=== PATIENT | female | born 1980 | race Caucasian/White ===

== ENCOUNTER 2017-04-04 14:39 | Inpatient (IN) ==
--- OUTSIDE RECORDS SUMMARY | 2017-04-04 14:45 | External Medical Summary ---
:1980 Author Organization [employer] Care Team Providers Name Role Phone Sirena Nguyễn Provider Role Unavailable Allergies, Adverse Reactions, Alerts Substance Reaction Event Type N.K.D.A. Info Not Available Non Drug Allergy Problems Problem Type Condition Code Onset Dates Condition Status Problem Thoracic or lumbosacral neuritis or 724.4 Active radiculitis, unspecified Assessment H/O motion sickness Z87.898 Active Problem Morbid obesity, unspecified obesity E66.01 Active type Assessment Morbid obesity, unspecified obesity E66.01 Active type Medications Medication Code Code Instructions Start End Date Status Dosage System Date Transderm-Scop NDC 58828-31 1.5 MG Jan 29, Feb 06, as directed 45-04 Transdermal 2015 2015 change every 3rd day Procedures Procedure Coding System Code Date OFFICE VISIT, EST-LOW COMPLEXITY (15 MIN.) CPT-4 52485 Jan 30, 2016 Vital Signs Date/Time: Jan 30, 2016 Temperature 98.3 F Height 63.5 in Weight 299.8 lbs Blood Pressure Diastolic 60 mm Hg Blood Pressure Systolic 122 mm Hg Cardiac Monitoring Heart Rate 77 /min BMI 52.27 Index Oximetry 94 % Results No Known Results Summary Purpose [employer] Submission
--- OUTSIDE RECORDS SUMMARY | 2017-04-04 14:45 | External Medical Summary ---
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
--- OUTSIDE RECORDS SUMMARY | 2017-04-04 14:45 | External Medical Summary ---
:1980 Author Organization [employer] Care Team Providers Name Role Phone Bobby Lopez Provider Role Unavailable Allergies, Adverse Reactions, Alerts Substance Reaction Event Type N.K.D.A. Info Not Available Non Drug Allergy Problems Problem Type Condition Code Onset Dates Condition Status Assessment Low back pain M54.5 Active Assessment Spinal stenosis, lumbar region M48.06 Active Problem Thoracic or lumbosacral neuritis or 724.4 Active radiculitis, unspecified Assessment Other intervertebral disc M51.26 Active displacement, lumbar region Medications Medication Code System Code Instructions Start End Date Status Dosage Date Flexeril [facility] 30927-14 10 MG Orally Feb 15, Mar 15, 1 tablet 91-15 every 8 hours as 2014 2015 needed for back pain PredniSONE [facility] 94232-74 10 MG Orally as Feb 15, Feb 27, 4 tabs 17-20 directed 2014 2014 daily x3 days then 3 tabs daily x3 days then 2 tabs daily x3 days then 1 tab daily x3 days then stop Phentermine HCl [facility] 56742-15 37.5 MG Orally 1 tablet 17-01 Once a day Procedures Procedure Coding System Code Date OFFICE VISIT, EST-MOD. COMPLEXITY (25 MIN) CPT-4 67507 Feb 15, 2015 TEST, IN HOUSE CPT-4 41125 Feb 15, 2015 Vital Signs Date/Time: Feb 15, 2015 Height 63.5 in Weight 282.8 lbs Temperature 97.9 F Blood Pressure Diastolic 86 mm Hg Blood Pressure Systolic 126 mm Hg Cardiac Monitoring Heart Rate 89 /min BMI 49.30 Index Oximetry 98 % Respiratory Rate 16 /min Results Name Result Date Reference Range Unit Abnormality Flag In House Test, Urine ---- Test, Urine negative [id number] Summary Purpose eClinicalWorks Submission
[2017-04-04 15:01] VITALS: BMI 57.0
[2017-04-04] MEDS ORDERED: LEVOFLOXACIN 750 MG TABLET PO SCH (15:12)
[2017-04-04] MEDS ORDERED: NS 1,000 ML IV ONE ×2 (15:17→23:05)
[2017-04-04] MEDS: ACETAMINOPHEN 325 MG TABLET PO PRN ×2 (15:34→20:50)
[2017-04-04] MEDS: METHYLPREDNISOLONE SOD SUCC 125mg/2ml INJECTION IVP SCH (16:18)
--- NOTE | 2017-04-04 16:18 | XRay Report ---
EXAM: XR chest 2V COMPARISON: 12/31/2016. HISTORY: hypoxemia . FINDINGS: The cardiomediastinal silhouette is within limits of normal. The pulmonary vascularity appears unremarkable. The lungs are clear. There is no evidence for pleural effusion. There is no evidence for a pneumothorax. No osseous abnormalities are identified. IMPRESSION: Unremarkable exam. LOCATION [place] DICTATION: [facility] [place]
--- NOTE | 2017-04-04 16:50 | History & Physical Report ---
History of Present Illness Date: 04/04/17 Chief complaint: acute hypoxic respiratory failure, respiratory distress HPI: patient is a pleasant 36yo female known to [facility]. she thinks she was told somewhere that she has asthma remotely but this isn't clear. she usually follows with Dodie Pike as her primary provider. she was in her usual state of health until about 5 or 6 days ago. at that time she noted runny nose with clear rhinorrhea which developed into fevers, chills and generalized body aches, fatigue and malaise. she also has felt generally weak. cough has been vigerous to the point where she's had spasm and pain to palpation over bilateral upper backs just inferior to scapula bilaterally. every time she coughs it hurts. it is directly tender to touch there. she was seen in clinic today where her O2 sats dropped into the mid-80's with any kind of exertion. her respirations were in the 30's to 40's at that time. she was moderately tachycardiac with HR's in 120's. she was complaining of a great deal respiratory distress and she was using some accessory muscles. EKG in clinic demonstrated sinus tachycardiac but was otherwise unremarkable. X1 nebulizer of albuterol was attempted but this was cut short as it made her nauseous. she notes nausea on and off with occasional normal appearing vomitus. this only occurs with long bouts of coughing and the gagging that occurs from this. given patient's hypoxemia and respiratory distress in clinic it was opted to admit to [facility] for further evaluation and treatment. patient positive for the fevers, chills, body aches, fatigue and generalized weakness noted in the above. no recent travel, camping, cherry exposures, rashes , skin changes. no ear pain, sinus pain, sore throat. runny nose persists. no headaches, nuchal rigidity, photophobia, meningeal symptoms. no dizziness, syncope, near syncope. appetite has been poor lately. no unintentional weight loss, night sweats or other constitutional symptoms. no ear drainage, hearing changes, tinnitus, vertigo. no vision changes, face swelling, changes in cognition, depression, altered mentation, obtundation, homicidal/suicidal ideations. not trying to get and not . no falls, trauma , injuries. no pain over bony spine itself. pain in back noted above worse when extending shoulders backward and flexing them forward as well. no chest pain. she has noted significant SOA at rest and exertional as well as wheezing with this. she doesn't feel like she's moving air nearly as well as she usually does. no hemoptysis. no orthopnea, PND, new edema, leg asymmetry. no recent long periods of immobilization. no personal or family history of venous thromboembolism. doesn't smoke. didn't get flu shot this season. 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 no known exposure to influenza. no abdominal pain, GERD symptoms. no low back pain. no numbness/weakness/tingling anywhere. no pain in any extremities. no radicular symptoms down legs or in arms. no hematemesis. no coffee ground emesis, melena, BRBPR, constipation, diarrhea, bloody/black stools. no dysphagia or GI warning symptoms. no dysuria, hematuria, urinary frequency, flank pain, nocturia, urinary/bowel incontinance, urinary retention, polyuria, oliguria, other urinary symptoms/chagnes, encephalopathic symptoms. denies any tylenol use. used occasional ibuprofen but only sparingly and never more than allowed on the bottle. see above and below for other ROS. no new issues otherwise at this time. Review of Systems - Constitutional Constitutional: Present: as per HPI - EENMT Eyes: Present: as per HPI Ears: Present: as per HPI Balance: Present: as per HPI. Absent: falling to one side Nose: Present: as per HPI Mouth/Throat: Present: as per HPI - Cardiovascular Cardiovascular: Present: as per HPI Vascular: Present: see HPI. Absent: unilateral swelling - Respiratory Respiratory: Present: as per HPI - Gastrointestinal Gastrointestinal: Present: as per HPI - Genitourinary Genitourinary: Present: as per HPI Menstruation: as per HPI Genitourinary Comments: no pelvic pain, flank pain, renal colic symptoms, pain over bladder. no abnormal vaginal bleeding, breast pain/discharge/masses/swelling/redness. - Musculoskeletal Musculoskeletal: Present: as per HPI - Integumentary/Breasts Integumentary: Present: as per HPI - Neurological Neurological: Present: as per HPI - Psychiatric Psychiatric: Present: as per HPI - Endocrine Endocrine: Present: as per HPI - Hematologic/Lymphatic Hematologic/Lymphatic: Present: as per HPI - Allergic/Immunologic Allergic/Immunologic: Present: as per HPI (see above for allergies and ADR's. ) Past Medical History Patient Stated Medical History Pneumonia Yes Hx Urinary Tract Infection Yes -questionable remote history of asthma Medical History Updates: -Pneumonia. -chronic musculoskeletal low back pain Surgical History: -none Family History: -father alive. has kidney failure, bipolar, chronic liver disease, diabetes, HTN, heart disease. -mother alive. has diabetes, HTN. -1 sister, 2 sons, 3 daughters. all healthy overall but sister is a diabetic. Family History Updates: see above. - Social History Smoking status: Never smoker Social history: -no tobacco use. -no illicit substance use -no significant alcohol use -lives at home with and children Medications Allergies Allergy/AdvReac Type Severity Reaction Status Date / Time No Known Drug Allergies Allergy Unknown Verified 04/04/17 15:38 Exam Vital Signs: Temperature 101.9 F H 04/04/17 15:02 Pulse Rate 119 H 04/04/17 15:02 Respiratory Rate 16 04/04/17 15:02 Blood Pressure 153/87 H 04/04/17 15:02 Pulse Oximetry 96 04/04/17 15:02 Telemetry Rhythm: Sinus Tachycardia Height/Weight/BMI: Height 1.52 m Weight 132.5 kg Body Mass Index 57.0 - Constitutional Present: mild distress, obese, cooperative. Absent: cachectic, diaphoretic, disheveled, combative, agitated, somnolent, obtunded - Routine HEENT Exam Head: Present: normocephalic, atraumatic Eye: Present: EOMI, PERRL, normal accommodation. Absent: periorbital swelling, proptosis ENT: Present: mucous membranes dry, oropharynx clear, nares patent, external ear normal, TM's clear bilaterally. Absent: sinus tenderness Comments: all findings above in this section bilateral unless otherwise noted. - Routine Neck Exam Present: supple, full ROM, trachea midline. Absent: JVD, lymphadenopathy, thyromegaly, tenderness, swelling, tracheal deviation, trauma, meningismus Comments: no photophobia. no clinical evidence of meningitis at this time. - Routine Chest/Breast/Axilla Exam Chest wall: Absent: tenderness Comments: patient with notable tenderness under bilateral scapulas by about 1 or 2 inches with considerable pain to palpation. no scapula tenderness b/l at this time. worse with flexion/extension of shoulder. ROM and muscle strength in upper/ lower extremities as well as DTR's/sensation/motor normal and symmetrical in all 4 extremities b/l at this time. some spasm noted there. no bony spine tenderness throughout at this time. gait normal. CN2-12 in tact. PERRLA. EOMI. no nystagmus. no photophobia. no clinical evidence of meningitis or encephalopathy at this time. affect and cognition appropriate at this time. low back not effected. no clinical evidence of ezequiel, depression, anxiety, altered mentation/sensorum/alertness, psychosis, delerium, confusion, obtundation, intoxication at this time. - Routine Respiratory Exam Present: accessory muscle use (some noted. RR in 30's and low 40's in clinic today.), dyspnea, respiratory distress (some noted in clinic. ), wheezes ( bibasilar, moderate, on end-expiration.), crackles (LLL at this time. otherwise no crackles b/l at this time. ), diminished air movement. Absent: patient mechanically ventilated, prolonged expiratory phase, rales, rhonchi, stridor, distant breath sounds Comments: lung sounds heard in all lung alberto b/l at this time. - Routine Cardiovascular Exam Present: no murmur Comments: heart regular rhythm. rate tachycardic. no murmurs. no LE edema b/l at this time. pulses normal in all 4 extremities b/l X4. legs symmetrical and compartments soft b/l in LE's at this time. clinically well perfused in all 4 extremities b/l at this time. no pallor or cyanosis of extremities b/l X4 at this time. - Routine Abdominal Exam Present: soft (X4.), normoactive bowel sounds (X4.), non distended (X4.), non tender (X4.). Absent: tenderness (X4.), distended (X4.), rebound, guarding, firm, rigid, organomegaly, mass Comments: no ascites or jaundice. - Routine Exam Comments: no tenderness over bladder area. no flank pain b/l at this time. see above for upper back pain. - Routine Extremities Exam Present: pulses intact. Absent: cyanosis, edema, joint swelling, pallor, extremity cold to touch - Routine Back/Spine/Pelvis Exam Comments: see above. - Routine Skin Exam Present: intact Comments: skin unremarkable to uncovered areas. no clinical evidence of skin/soft tissue areas or concerning rashes/skin changes at this time. - Routine Neurological Exam Present: alert, oriented X3, vision grossly intact. Absent: altered mental status no conjunctival injection b/l at this time. no face swelling. see above. - Routine Psychiatric Exam Present: normal affect, normal thought process, cooperative, good insight, good judgment. Absent: suicidal ideation, homicidal ideation, auditory hallucinations, visual hallucinations, tactile hallucinations, depressed, anxious, agitated, paranoid, manic Comments: see above as well. Results - Labs CBC & Chem 7: 04/04/17 15:54 04/04/17 15:54 Microbiology Results: Microbiology 04/04/17 15:54 Peripheral/Iv Start Blood Culture - Preliminary Culture Initiated - Results Pending 04/04/17 15:43 Peripheral/Iv Start Blood Culture - Preliminary Culture Initiated - Results Pending Assessment and Plan Assessment and Plan: acute hypoxic respiratory failure from upper respiratory infection versus community acquired pneumonia with component of acute asthma exacerbation respiratory distress secondary to above clinical dehydration sinus tachycardiac secondary to the above dehydration and acute illness bilateral upper back spasm secondary to vigerous coughing nausea/vomiting secondary to vigerous coughing -admit to inpatient and consider ICU. start routine vitals with call parameters, telemetry, continuous pulse ox, I's and O's, daily weights, regular diet, activity up with assist, titrate oxygen as needed. -start duonebs scheduled, IV solumedrol, IV levaquin, IV fentanyl prn, tessalon perles scheduled, tylenol prn, IV normal saline bolus follwed by 100ml/hr. may give more if needed. -check respiratory pcr, mg, phos, cbc, cmp, tsh, serum , UA, crp, troponin, bnp, sputum cx and gram stain, urine strep pneumonia, coags, CXR, repeat EKG now. check echocardiogram. -check cbc, cmp, mycoplasma serologies in the AM. -if no improvement will consider workup for pulmonary embolism/VTE but clinically appears related to respiratory infection/excacerbation of chronic lung disease at this time. -considering pulmonary consultation but will see how she does initially. -further workup pending the above. all other chronic medical conditions stable and no changes to plan of care at this time. ppx -likely start SQ lovenox for DVT ppx but await the above. -PO diet as noted above for GI ppx. -FULL CODE -dispo heavily dependent on the above. DVT Prophylaxis: other (pending the above testing.) GI Prophylaxis: other (PO diet.) Resuscitation Status: Full Code - Time spent with patient Time with patient PN: 50 minutes Sepsis Assessment - Evaluation SIRS Criteria: temperature > 100.9, pulse > 90 beats/minute
[2017-04-04] MEDS: LEVOFLOXACIN PB 750 MG/150 ML BAG IV SCH (17:08)
[2017-04-04] MEDS: NS 1,000 ML IV SCH (17:18)
[2017-04-04] MEDS: ALBUTEROL/IPRATROPIUM 2.5mg-0.5mg/3ml NEB AEROSOL SCH (18:53)
[2017-04-04] MEDS: BENZONATATE 200 MG CAPSULE PO SCH (20:44)
[2017-04-04] MEDS: FentaNYL 100 MCG/2 ML INJECTION IVP PRN (22:40)
[2017-04-05] MEDS: METHYLPREDNISOLONE SOD SUCC 125mg/2ml INJECTION IVP SCH ×3 (00:44→17:10)
[2017-04-05] MEDS: NS 1,000 ML IV SCH (06:34)
[2017-04-05] MEDS: ALBUTEROL/IPRATROPIUM 2.5mg-0.5mg/3ml NEB AEROSOL SCH ×4 (08:00→19:17)
[2017-04-05] MEDS: BENZONATATE 200 MG CAPSULE PO SCH ×3 (09:12→21:24)
[2017-04-05] MEDS: FentaNYL 100 MCG/2 ML INJECTION IVP PRN (09:13)
[2017-04-05] MEDS: ENOXAPARIN 40 MG/0.4 ML INJECTION SQ SCH (11:16)
[2017-04-05] MEDS ORDERED: POTASSIUM PHOSPHATE (mMol) 20 MMOL in NS 500ml 500 ML IV SCH (13:15)
--- NOTE | 2017-04-05 13:17 | Progress Note ---
- Date 04/05/17 Subjective: patient doing much better overall. moving air much better today. when asked she notes 75% improvement in her breathing from yesterday. still feels generally weak, fatigued and with generalized body aches but far better than yesterday. still with some SOA on exertion but none on rest now. cough dry now but otherwise unchanged from yesterday. no fevers since yesterday and she hasn't had any tylenol since yesterday. fentanyl prn does help back pain noted yesterday but it doesn't last long. no new back pain. no bony spine tenderness. no falls, trauma, injuries. no numbness/weakness/tingling/pain anywhere in extremities or otherwise at this time b/l X4. no headaches, stroke symptoms, focal neurologic deficits, seizure symptoms, cranial nerve symptoms, skin changes, new rashes. no dizziness, syncope, near-syncope, orthostatic symptoms. nausea from yesterday has resolved and she tolerated breakfast well this AM. no chest pain. no new or changing back pain. no orthopnea, PND, new edema, leg asymmetry, hemoptysis. no abdominal pain, GERD symptoms, hematemesis , coffee ground emesis, melena, BRBPR, constipation, diarrhea, bloody/black stools, vomiting. no dysphagia. no GI warning symptoms. no mood changes, encephalopathic symptoms, depression symptoms, manic symptoms, psychotic symptoms, anxiety. she does feel a little shaky for a few minutes after the duonebs but this is mild and resolves quickly. no boggy/painful/swollen/ inflammed joints b/l. no event called on telemetry. HR now normal and other vitals unremarkable. did have desaturation last night down to 80's when sleeping but no such issues today. no photophobia. no meningeal symptoms. she 's on room air now. no acute issues called overnight. patient sitting up and eating lunch upon my interview today. no new issues otherwise at this time. Objective Vital signs: Temperature 96.7 F L 04/05/17 08:00 Pulse Rate 93 04/05/17 11:30 Respiratory Rate 14 04/05/17 11:30 Blood Pressure 134/77 04/05/17 11:30 Pulse Oximetry 92 04/05/17 11:30 Rhythm: Normal Sinus Rhythm Height/Weight/BMI: Height 1.52 m Weight 137.5 kg Body Mass Index 57.0 - Constitutional Present: no acute distress, obese, cooperative. Absent: cachectic, diaphoretic , disheveled, combative, agitated, somnolent, obtunded - Routine HEENT Exam Head: Present: normocephalic, atraumatic ENT: Present: mucous membranes moist - Routine Respiratory Exam Present: crackles (LLL crackles still present but not as pronounced. ), diminished air movement (but markedly improved from yesterday. ). Absent: accessory muscle use, patient mechanically ventilated, dyspnea, decreased breath sounds, CTA bilaterally (see above and below.), prolonged expiratory phase, rales, respiratory distress, rhonchi, stridor, wheezes, distant breath sounds Comments: lung sounds heard in all lung alberto b/l at this time. significant improvement noted in respiratory exam. - Routine Cardiovascular Exam Present: RRR, no murmur. Absent: gallop, rubs, bradycardia, tachycardia, irregular rhythm, irregularly irregular, JVD Comments: no new edema. legs symmetrical and compartments soft b/l in LE's at this time. clinically well perfused in all 4 extremities b/l at this time. - Routine Abdominal Exam Present: soft (X4.), normoactive bowel sounds (X4.), non distended (X4.), non tender (X4.). Absent: tenderness (X4.), distended (X4.), rebound, guarding, firm, rigid, organomegaly, mass Comments: no ascites or jaundice. - Routine Exam Comments: no tenderness over bladder area. no clinically evidence of upper UTI at this time. no bony spine tenderness. no changes in location of back pain from yesterday's exam and I'll refer you to yesterday's note for details on this. it is much less prominent and severe today. no clinical evidence of acute, chronic or worsening neurovascular or musculoskeletal compromise b/l in extremities x4 at this time. no boggy/inflammed/painful joints or muscles b/l X4. no pallor or cyanosis of extremities b/l at this time. - Routine Extremities Exam Absent: cyanosis, joint swelling, pallor, extremity cold to touch - Routine Back/Spine/Pelvis Exam Comments: see the above. - Routine Musculoskeletal Exam Musculoskeletal: Present: no joint swelling, no tenderness, no erythema, moving extremities well. Absent: joint erythera, joint swelling - Routine Skin Exam Present: intact Comments: no skin changes from previous to uncovered areas b/l at this time. - Routine Neurological Exam Present: alert, oriented X3 no changes neurologically from previous baseline. no photophobia. no clinical evidence of meningitis or encephalopathy at this time. no clinical evidence of anxiety, tremors, ezequiel, altered mentation/sensorum/alertness, obtundation, psychosis, confusion, intoxication. - Routine Lymphatic Exam Lymphatic: Absent: lymphedema - Routine Psychiatric Exam Present: normal affect, normal thought process, cooperative, good insight, good judgment. Absent: suicidal ideation, homicidal ideation, auditory hallucinations, visual hallucinations, tactile hallucinations, depressed, anxious, agitated, paranoid, manic Comments: see above. Results - Labs CBC & Chem 7: 04/05/17 04:28 04/05/17 04:28 Microbiology Results: Microbiology 04/04/17 15:54 Peripheral/Iv Start Blood Culture - Preliminary Culture Initiated - Results Pending 04/04/17 15:43 Peripheral/Iv Start Blood Culture - Preliminary Culture Initiated - Results Pending Assessment and Plan Assessment and Plan: acute hypoxic respiratory failure and respiratory distress from upper respiratory infection versus community acquired pneumonia with component of acute on (likely) chronic asthma exacerbation. sepsis syndrome. mild transaminitis secondary to acute illness hypophosphatemia mild steroid induced hyperglycemia mild dilutional anemia mild CK elevation secondary to vigerous coughing mild hyperthyroidism, likely secondary to acute illness. clinical dehydration, resolved sinus tachycardiac secondary to the above dehydration and acute illness, resolved bilateral upper back spasm secondary to vigerous coughing, improved nausea/vomiting secondary to vigerous coughing, resolved -continue inpatient, routine vitals with call parameters, telemetry, continuous pulse ox, I's and O's, daily weights, regular diet, activity up with assist, titrate oxygen as needed. -continue duonebs scheduled, IV solumedrol, IV levaquin day 2, tessalon perles scheduled. replace phos by IV today. -started norco prn for back pain. -d/c IV fentanyl. already discontinued tylenol. already discontinued IV normal saline. -respiratory PCR normal. mg normal. TSH 0.18 and likely secondary to acute illness. INR 1.30. PTT ok. cmp with mild elevation in blood sugars (100's) and mild transaminase elevation ( see above for explaination). on subsequent cmp today the sugar is generally stable and transaminases improving. phos low at 1.7. urine negative. CXR unremarkable but something may blossom after rehydration so continued treatment with levaquin indicated at this time. UA with some expected ketones but otherwise unremarkable. crp 54 yesterday. bnp normal. EKG generally stable and non-scute form yesterday. troponin negative. CK just high end of normal secondary to vigerous coughing but this is expected. cbc yesterday with mild predominance of neutrophils and otherwise unremarkable. cbc today with hgbof 11.5 (dilutional) and otherwise unremarkable. lactic acids and procalcitonins normal. lipase is normal. see previous notes for other testing and results from this stay. -echocardiogram, mycoplasma serologies, urine strep pneumonia, sputum culture and gram stain, blood cultures pending. -cbc, cmp, free T3, free T4, crp in the AM. -given vast clinical improvement as well as lack of risk factors there is no indication for further workup for pulmonary embolism/VTE unless clinical course changes. -further workup pending the above. all other chronic medical conditions stable and no changes to plan of care at this time. ppx -SQ lovenox for DVT ppx. -PO diet as noted above for GI ppx. -FULL CODE -dispo likely discharge to home tomorrow. DVT Prophylaxis: Lovenox (SQ lovenox.) GI Prophylaxis: other (PO diet.) Resuscitation Status: Full Code - Time spent with patient Time with patient PN: 25 minutes - Physician Narrative Narrative: Date: 04/05/17 Time: 1310 Sepsis Assessment - Evaluation Severe Sepsis: none seen
[2017-04-05] MEDS: LEVOFLOXACIN PB 750 MG/150 ML BAG IV SCH (17:09)
[2017-04-06] MEDS: METHYLPREDNISOLONE SOD SUCC 125mg/2ml INJECTION IVP SCH ×3 (01:44→16:01)
[2017-04-06] MEDS: HYDROCODONE/APAP 5mg/325mg TABLET PO PRN ×3 (06:08→23:09)
[2017-04-06] MEDS: ALBUTEROL/IPRATROPIUM 2.5mg-0.5mg/3ml NEB AEROSOL SCH ×3 (07:31→16:13)
[2017-04-06] MEDS: ENOXAPARIN 40 MG/0.4 ML INJECTION SQ SCH (09:33)
[2017-04-06] MEDS: BENZONATATE 200 MG CAPSULE PO SCH ×3 (09:33→21:58)
--- NOTE | 2017-04-06 13:02 | Echocardiogram ---
DATE OF PROCEDURE April 05, 2017 This is a two-dimensional echo with spectral Doppler, color-flow and M-mode. It was obtained in a patient with hypoxia and shortness of air. Left atrium is mildly dilated. Left ventricular end-diastolic dimension is normal. Left ventricular wall thickness is normal. LV systolic function is normal with ejection fraction of about 72%. Right atrium is normal. Right ventricle is normal. Aortic root dimension is normal. Mitral valve is morphologically normal with mild mitral regurgitation. Aortic valve appears to be normal. Tricuspid valve shows mild tricuspid regurgitation with normal estimated pulmonary artery systolic pressure of 27. Pulmonary valve shows no pulmonary insufficiency. There is no pericardial effusion. IMPRESSION 1. Normal LV systolic function with ejection fraction of 72%. 2. Mild left atrial dilation. 3. Mild mitral regurgitation. 4. Mild tricuspid regurgitation with normal estimated pulmonary artery systolic pressure of 27. MTDD
[2017-04-06] MEDS: LEVOFLOXACIN PB 750 MG/150 ML BAG IV SCH (15:58)
--- NOTE | 2017-04-06 17:48 | Progress Note ---
- Date 04/06/17 Subjective: symptoms a bit worse today. since about 2AM this morning patient has had more SOA. some more SOA when laying on her back when asked she thinks but she's not completely sure. no chest pain. not as SOA as when she came in but still a step back from yesterday. more SOA on exertional moderately today as compared to yesterday. feels like she has more expiratory wheezes today. cough unchanged from yesterday and still quite vigerous at times. no hemoptysis. cough has been dry today. no headaches, stroke symptoms, syncope, photophobia, nuchal rigidity, meningeal symptoms, skin changes, new rashes, vision changes, ear pain, sinus pain, sore throat. she is less fatigued and generally weak than when she came in but no changes from yesterday. falls, trauma, injuries, unintentional weight loss. no appetite issues. no night sweats. no dizziness , syncope, near-syncope. no runny nose. generalized body aches the same from yesterday. no orthostatic symptoms. no PND, new edema, leg asymmetry. no abdominal pain, GERD symptoms, nausea, vomiting, diarrhea, constipation, bloody/ black stools. has had X1 bowel movement since we last spoke which was normal in appearance. no palpitations. no dysuria, hematuria, urinary frequency, flank pain, nocturia, urinary/bowel incontinance, polyuria, oliguria, urinary retention. no new swollen/boggy/inflammed joints b/l. no numbness/weakness/ tingling anywhere. no mood changes, encephalopathic symptoms, changes in cognition, confusion, altered mentation symptoms. musculoskeletal upper back pain noted in yesterday's note much improved. no new back pain or changes/new associated symptoms from yesterday's note in this regard. no events called on telemetry overnight. vitals have been stable. no new issues otherwise at this time. Objective Vital signs: Temperature 97.5 F 04/06/17 15:27 Pulse Rate 71 04/06/17 15:27 Respiratory Rate 16 04/06/17 16:14 Blood Pressure 134/64 04/06/17 15:27 Pulse Oximetry 95 04/06/17 16:14 Rhythm: Normal Sinus Rhythm Height/Weight/BMI: Height 1.52 m Weight 137 kg Body Mass Index 57.0 - Constitutional Present: no acute distress, obese, cooperative. Absent: thin, cachectic, diaphoretic, disheveled, combative, agitated, somnolent, obtunded - Routine HEENT Exam Head: Present: normocephalic, atraumatic Eye: Absent: periorbital swelling ENT: Present: mucous membranes moist Comments: patient appears clinically euvolemic at this time. - Routine Respiratory Exam Present: CTA bilaterally. Absent: accessory muscle use, patient mechanically ventilated, dyspnea, decreased breath sounds, prolonged expiratory phase, rales , respiratory distress, rhonchi, stridor, wheezes, crackles, distant breath sounds, diminished air movement Comments: lung sounds heard in all lung alberto. all findings in this section bilateral unless otherwise noted. - Routine Cardiovascular Exam Present: RRR, no murmur. Absent: gallop, rubs, click, bradycardia, tachycardia , irregular rhythm, irregularly irregular, JVD Comments: no new edema b/l in extremities b/l at this time. legs symmetrical and compartments soft b/l in LE's at this time. - Routine Abdominal Exam Present: soft (X4.), normoactive bowel sounds (X4.), non distended (X4.), non tender (X4.). Absent: tenderness (X4.), distended (X4.), rebound, guarding, firm, rigid, organomegaly, mass Comments: no ascites, jaundice, distension. - Routine Exam Comments: no tenderness over bladder area. no flank pain b/l at this time. no clinical evidence of upper UTI b/l at this time. - Routine Extremities Exam Absent: cyanosis, joint swelling, pallor, extremity cold to touch Comments: see above. - Routine Back/Spine/Pelvis Exam Comments: see above. - Routine Musculoskeletal Exam Musculoskeletal: Present: moving extremities well - Routine Skin Exam Present: intact Comments: no skin changes from previous to uncovered areas. - Routine Neurological Exam Present: alert, oriented X3 no changes from previous and from yesterday's/day of admission's exam neurologically at this time. no photophobia. no nuchal rigidity. no clinical evidence of meningitis at this time. - Routine Lymphatic Exam Lymphatic: Absent: lymphedema - Routine Psychiatric Exam Present: normal affect, normal thought process, cooperative, good insight, good judgment. Absent: suicidal ideation, homicidal ideation, auditory hallucinations, visual hallucinations, tactile hallucinations, depressed, anxious, agitated, paranoid, manic Comments: see above. affect and cognition unchanged from previous baseline. no clinical evidence of encephalopathy at this time. no changes in mental status. Results - Labs CBC & Chem 7: 04/06/17 04:37 04/06/17 04:37 Microbiology Results: Microbiology 04/04/17 15:54 Peripheral/Iv Start Blood Culture - Preliminary No Growth After 2 Days 04/04/17 15:43 Peripheral/Iv Start Blood Culture - Preliminary No Growth After 2 Days 04/04/17 20:39 Urine Streptococcus pneumoniae Antigen (M - Final Assessment and Plan Assessment and Plan: acute hypoxic respiratory failure and respiratory distress from upper respiratory infection versus community acquired pneumonia with component of acute on (likely) chronic asthma exacerbation. sepsis syndrome. increased SOA upon laying down and on exertion today. new leukocytosis and bandemia. steroids likely contributing to leukocytosis but this doesn't explain bandemia. musculoskeletal upper back pain from coughing, improved. mild transaminitis secondary to acute illness, resolved. hypophosphatemia, resolved mild steroid induced hyperglycemia mild dilutional anemia mild CK elevation secondary to vigerous coughing mild hyperthyroidism, likely secondary to acute illness. clinical dehydration, resolved sinus tachycardiac secondary to the above dehydration and acute illness, resolved bilateral upper back spasm secondary to vigerous coughing, improved nausea/vomiting secondary to vigerous coughing, resolved -continue inpatient, routine vitals with call parameters, telemetry, continuous pulse ox, I's and O's, daily weights, regular diet, activity up with assist, titrate oxygen as needed. -make duonebs prn as they make patient nervous. d/c IV solumedrol and convert to steroid taper. d/c levaquin as she just finished day 3 and may convert to vancomycin/zosyn depending on lab/imaging results below. continue tessalon perles prn. continue norco prn. -cbc's today with normal hgb/hct, bands of 13%, wbc of 17,600 and otherwise unremarkable. phos normal. echocardiogram normal. urine strep pneumonia negative. cmp's with sugars in 100's but otherwise unremarkable. see previous notes for other testing and results from this stay. -cbc, d-dimer, crp, UA, EKG, troponin, BNP right now. will either do repeat CXR or CT chest with PE protocol now depending on results of labs. -mycoplasma serologies, sputum culture and gram stain, blood cultures X2 from admission still pending. free T3 and free T4 pending. -cbc, cmp in the AM. -further workup pending the above. all other chronic medical conditions stable and no changes to plan of care at this time. ppx -SQ lovenox for DVT ppx. -PO diet as noted above for GI ppx. -FULL CODE -dispo continue inpatient today. DVT Prophylaxis: Lovenox GI Prophylaxis: other (continue PO diet.) Resuscitation Status: Full Code - Time spent with patient Time with patient PN: 25 minutes - Physician Narrative Narrative: Date: 04/06/17 Time: 1736 Sepsis Assessment - Evaluation SIRS Criteria: WBC > 12,000, Bands > 10%
[2017-04-06] MEDS ORDERED: IOHEXOL 350mg/ml 100ml INJECTION ONE (18:38)
[2017-04-06] MEDS ORDERED: SALINE FLUSH 10ml SYRINGE ONE (18:38)
[2017-04-06] MEDS ORDERED: ALBUTEROL/IPRATROPIUM 2.5mg-0.5mg/3ml NEB AEROSOL PRN (18:40)
--- NOTE | 2017-04-07 07:35 | CT Scan Report ---
EXAM: CT angio pulm emboli DATE: 04/06/2017 12:00 AM ENCOUNTER: Initial INDICATION: elevated d-dimer, shortness of breath COMPARISON: None available. TECHNIQUE: Following the uneventful administration of a bolus of 74.1 ml Omnipaque 350 intravenous contrast, thin section axial CT images were obtained through the chest using the pulmonary embolus protocol. Coronal, sagittal, and MIP reformatted images were also obtained. The current CT scan was performed using radiation dose-reduction techniques. FINDINGS: Pulmonary Arteries: No evidence of pulmonary thromboembolic disease. No pulmonary hypertension or right ventricular strain. Heart and Mediastinum: The heart and pericardium are normal. The great vessels of the thorax are within normal limits. The visualized portions of the thyroid gland are of normal size and attenuation. No axillary or supraclavicular lymphadenopathy. No mediastinal, hilar or retrocrural lymphadenopathy. Lungs and Airways: No pulmonary nodule, mass, or consolidation. No endoluminal lesion. Pleura: Minimal basilar subsegmental atelectasis. No pleural effusions or pneumothorax. Abdomen: Gallstone noted within an otherwise normal-appearing gallbladder. Bones and soft tissues: No acute osseous or soft tissue abnormality identified. Degenerative disc disease of the thoracic spine. IMPRESSION: 1. No CT evidence of thromboembolic disease or other acute cardiopulmonary process. 2. Cholelithiasis. 3. Degenerative disc disease of the thoracic spine. The above report concurs with the preliminary report provided by [facility] at 7:58 PM. .
[2017-04-07] MEDS ORDERED: PredniSONE 20 MG TABLET PO SCH (08:00)
[2017-04-07] MEDS: BENZONATATE 200 MG CAPSULE PO SCH ×2 (09:39→14:06)
[2017-04-07] MEDS: ENOXAPARIN 40 MG/0.4 ML INJECTION SQ SCH (09:39)
[2017-04-07] MEDS: HYDROCODONE/APAP 5mg/325mg TABLET PO PRN (14:06)
[2017-04-07 15:37] VITALS: BP 130/68; PULSE 88; RESP 20; TEMP 97.7; O2SAT 92
--- NOTE | 2017-04-07 17:26 | Progress Note ---
- Date 04/07/17 Subjective: patient doing a bit better. she does note her and son were diagnosed with influenza A today. SOA a bit improved from yesterday. still feels more wheezy on expiration but modest improvement noted. no new orthopnea, no PND. no new edema. no headaches, photophobia, meningeal symptoms, vision changes, syncope, near-syncope, dizziness, orthostatic symptoms, skin changes, new rashes. no fevers. some improvement in chills. back pain noted from admission well controlled with norco prn. no ear pain, sinus pain, sore throat. fatigue and generalized weakness still improved from admission but not changed much from yesterday. no falls, trauma, injuries, changes in exertional tolerance. no chest pain on rest or admission. vitals stable since last visit. cough only mildly improved from yesterday. no hemoptysis. no sputum production and cough is dry. no mood changes, depression symptoms, encephalopathic symptoms, confusion, altered mentation. no abdominal pain, GERD symptoms, nausea, vomiting, diarrhea, constipation, bloody/black stools, hematemesis, coffee ground emesis. appetite improving from yesterday and no more nausea as noted above. no dysphagia or other GI warning symptoms. no new or changing joint/muscle aches. no swollen/boggy/focally tender joints or muscles. no dysuria, hematuria, urinary frequency, flank pain, nocturia, urinary/bowel incontinance, urinary retention, polyuria, oliguria, other urinary symptoms/changes. upper back pain noted in previous notes is much improved and well controlled with the norco. no numbness/weakness/tingling anywhere. no new or changing neuropathic symptoms. no bony spine tenderness. no new associated symptoms or other changes in previous symptoms to previous upper back pain otherwise. no events called overnight. no events called on telemetry. no new issues otherwise at this time. Objective Vital signs: Temperature 97.7 F 04/07/17 15:36 Pulse Rate 88 04/07/17 15:36 Respiratory Rate 20 04/07/17 15:36 Blood Pressure 130/68 04/07/17 15:36 Pulse Oximetry 92 04/07/17 15:36 Rhythm: Normal Sinus Rhythm Height/Weight/BMI: Height 1.52 m Weight 136 kg Body Mass Index 57.0 - Constitutional Present: no acute distress, obese, cooperative. Absent: thin, cachectic, diaphoretic, disheveled, combative, agitated, somnolent, obtunded - Routine HEENT Exam Head: Present: normocephalic, atraumatic Eye: Absent: periorbital ecchymosis, periorbital swelling ENT: Present: mucous membranes moist - Routine Respiratory Exam Present: CTA bilaterally. Absent: accessory muscle use, patient mechanically ventilated, dyspnea, decreased breath sounds, prolonged expiratory phase, rales , respiratory distress, rhonchi, stridor, wheezes, crackles, distant breath sounds, diminished air movement Comments: lung sounds heard in all lung alberto b/l at this time. all findings in this section bilateral unless otherwise noted. - Routine Cardiovascular Exam Present: RRR, no murmur. Absent: gallop, rubs, click, bradycardia, tachycardia , irregular rhythm, irregularly irregular, JVD Comments: cardiac exam unchanged from previous. no new edema. legs symmetrical and compartments soft b/l in LE's at this time. clinically well perfused in all 4 extremities b/l at this time. - Routine Abdominal Exam Present: soft (X4.), normoactive bowel sounds (X4.), non distended (X4.), non tender (X4.). Absent: tenderness (X4.), distended (X4.), rebound, guarding, firm, rigid, organomegaly, mass Comments: no ascites or jaundice. - Routine Exam Comments: no tenderness over bladder area. no clinical evidence of upper UTI b/l at this time. - Routine Extremities Exam Absent: cyanosis, joint swelling, pallor, extremity cold to touch Comments: see above. - Routine Back/Spine/Pelvis Exam Comments: see above. see above and below. - Routine Musculoskeletal Exam Musculoskeletal: Present: normal strength, no erythema, moving extremities well. Absent: no joint swelling, joint erythera, joint swelling - Routine Skin Exam Present: intact Comments: back pain much improved to palpation from previous. only mild tenderness to touch in thoracic back bilaterally in same areas as noted on admission. no bony spine tenderness. no clinical evidence of acute, chronic or worsening neurovascular compromise b/l in extremities X4 at this time. no new back pain from previous. no skin changes from previous to uncovered areas at this time. - Routine Neurological Exam Present: alert, oriented X3. Absent: altered mental status no changes neurologically from previous baseline. see above. no photophobia. no clinical evidence of meningitis or encephalopathy at this time. no clinical evidence of ezequiel, depression, anxiety, altered mentation/sensorum/alertness, confusion, psychosis, delerium at this time. see above and below. - Routine Lymphatic Exam Lymphatic: Absent: lymphedema - Routine Psychiatric Exam Present: normal affect, normal thought process, cooperative, good insight, good judgment. Absent: suicidal ideation, homicidal ideation, auditory hallucinations, visual hallucinations, tactile hallucinations, depressed, anxious, agitated, paranoid, manic Comments: see above. Results - Labs CBC & Chem 7: 04/07/17 05:09 04/07/17 05:09 Microbiology Results: Microbiology 04/04/17 15:43 Peripheral/Iv Start Blood Culture - Preliminary No Growth After 3 Days 04/04/17 15:54 Peripheral/Iv Start Blood Culture - Preliminary No Growth After 3 Days 04/04/17 20:39 Urine Streptococcus pneumoniae Antigen (M - Final Assessment and Plan Assessment and Plan: acute hypoxic respiratory failure and respiratory distress from upper respiratory infection, influenza A/coronavirus acute bronchitis and sepsis syndrome. steroid induced leukocytosis and hyperglycemia musculoskeletal upper back pain from coughing, improved. mild transaminitis secondary to acute illness, resolved. hypophosphatemia, resolved mild dilutional anemia mild CK elevation on admission secondary to vigerous coughing mild hyperthyroidism, likely secondary to acute illness but will follow as outpatient. clinical dehydration, resolved sinus tachycardiac secondary to the above dehydration and acute illness, resolved nausea/vomiting secondary to vigerous coughing, resolved patient on her period at this time -discharge to home today. -convert duonebs to venolin prn. start steroid taper as outpatient. give X3 more days of azithromycin as outpatient. continue tessalon perles prn as outpatient. continue norco prn as outpatient and give colace prn for any constipation. given risk factors will treat with Tamiflu 75mg PO BID X5 days. -cbc's today with stable mild dilutional anemia, improving leukocytosis, resolved bandemia, stable predominance of neutrophils and otherwise unremarkable. sputum cx and gram stain unable to be obtained. repeat respiratory PCR today positive for coronavirus and influenza A and otherwise unremarkable. see yesterday's addendum for testing ordered yesterday evening. CTA chest negative for PE and otherwise normal also. UA with notable blood from patient starting her menses today and otherwise unchanged and unremarkable from previous baseline. crp improving as of yesterday. EKG yesterday normal. troponin yesterday normal. blood cultures negative to date but still officially pending from discharge. see previous notes for other testing and results from this stay. -mycoplasma serologies, free T3 and free T4 pending. -patient informed to call her children's pediatritian (or provider print controller for them) as they'll likely need to get started on prophylactic influenza and she verbalizes understanding. she was also told any household contacts would need to call their primary care provider immediately for possible influenza medication prophylaxis and she verbalized understanding of this also. all other chronic medical conditions stable and no changes to plan of care at this time. ppx -SQ lovenox for DVT ppx while inpatient. -PO diet as noted above for GI ppx. -FULL CODE -dispo discharge to home today. see discharge summary and orders for details. DVT Prophylaxis: Lovenox GI Prophylaxis: other (PO diet.) Resuscitation Status: Full Code - Time spent with patient Time with patient PN: 50 minutes - Physician Narrative Narrative: Date: 04/07/17 Time: 1717 Sepsis Assessment - Evaluation SIRS Criteria: WBC > 12,000
--- NOTE | 2017-04-08 16:46 | Discharge Summary ---
MODE OF ADMISSION Inpatient. ATTENDING PHYSICIAN Dr. Rosales [facility] ADMITTING PHYSICIAN Dr. Rosales [facility] ANCILLARY SERVICES WHILE HERE None. CONSULTING PHYSICIAN None. DISCHARGE DESTINATION/DISCHARGE CONDITION Home, in stable condition. DISCHARGE MEDICATIONS 1. Colace 100 mg p.o. b.i.d. p.r.n. constipation x 10 days. 2. Argyle 5/325, one to two tablets p.o. q.6h. p.r.n. pain x10 days with no refills. 3. Prednisone taper - 10 mg tablets. Take four tablets p.o. daily x 3 days, then take three tablets p.o. daily x 3 days, then take two tablets p.o. daily x 3 days, then take one tablet p.o. daily x 3 days and then stop. Quantity sufficient for the above and no refills. 4. Tamiflu 75 mg p.o. b.i.d. x 5 days. 5. Ventolin inhaler 90 mcg, two puffs orally inhaled q.6h. p.r.n. shortness of air/wheezing. 6. Tessalon Perles 200 mg p.o. q.8h. p.r.n. cough/congestion. 7. Azithromycin 250 mg p.o. daily x 3 more days and stop. DIET Regular. ACTIVITIES As tolerated. PAIN MANAGEMENT/TREATMENT If the patient's current back pain is not resolved in one week completely then she will let us know right at that time. If the patient's back pain worsens and /or new symptoms/pain occurs she will let us know right away. If any new pain or discomfort occur she will let us know right away. WOUND CARE If any of her IV sites from the hospitalization become red, swollen or painful then she will let us know right away. This was not an issue throughout her hospitalization here. ADDITIONAL INSTRUCTIONS 1. Orders given to nursing to please continue all lines, IVs and telemetry the patient did not come in on before discharge. 2. If any issues worsen and/or new ones occur she will be seen immediately. 3. If the patient cannot make her appointments or access her medications she will let us know right away. EXPECTED SIGNS/SYMPTOMS The patient's cough, shortness of breath, back pain, fevers, chills, fatigue, weakness and body ache should all continue to improve and eventually resolve. RETURN TO CARE Return to care immediately if fevers should occur. The patient was also told to return to care immediately if any of her previous chills, weakness, fatigue, body aches or other symptoms that got her admitted to the hospital should worsen again. She was also told to be seen immediately if any diarrhea occurs. CONTACT NUMBERS Contact numbers were given to the patient to contact Dr. Rosales after business and during business hours. For any pending lab results the patient will follow with her with primary care. KanQuit: This is not applicable as the patient does not use tobacco. Orders for followup were given to [facility] one [facility] with a CBC, CMP and UA done the day before and sent to him. DISCHARGE DIAGNOSES 1. Acute hypoxic respiratory failure and respiratory distress from upper respiratory tract infection, influenza A/coronavirus, acute bronchitis and sepsis syndrome. 2. Steroid-induced leukocytosis and hyperglycemia. 3. Musculoskeletal upper back pain from vigorous coughing which is improved. 4. Mild transaminase elevation on admission secondary to the acute illness which has resolved. 5. Hypophosphatemia, which is resolved. 6. Mild dilutional anemia which is stable. 7. Mild CK elevation on admission secondary to vigorous coughing. 8. Mild subclinical hyperthyroidism, likely secondary to acute illness but will follow as an outpatient. 9. Clinical dehydration which is resolved. 10. Sinus tachycardia on admission secondary to dehydration and acute illness which has resolved. 11. Nausea and vomiting secondary to vigorous coughing which is resolved. 12. Patient is on her period at this time which caused some microscopic hematuria to be noted in her UA one episode while here. LABORATORY DONE WHILE HERE The patient's white count was initially normal. It did go up to 17,600 on 04/06 and there was a bandemia noted at that time. The bandemia resolved and the white count was coming down by discharge and was 17,300 by discharge. Hemoglobin was about 11.3 to 11.5 after rehydration and that is where this has stayed for several days. The patient did have a predominance of neutrophils which would be expected while here. The patient's CBC and differential were otherwise nonacute and unremarkable in general while here and will be followed as noted above. Platelets were normal while here. INR on admission was 1.30 and PTT was 28.2. These were generally unremarkable. D-dimer was 240 and elevated on 04/06/2017. Patient's sodiums were normal while here as were the potassiums and chlorides. The patient's acid base status was normal while here as was her renal function. Blood sugars were generally in the mid-to-high 100s secondary to the steroids and thus were not treated any further. Calcium and serum osmolality were normal while here. Phosphorus was 1.7 on admission. It was 2.6 the day after replacement. Magnesium was normal on admission. Liver functions tests demonstrated a mild elevation in transaminases which were resolved by 04/06/2017 and LFTs were otherwise unremarkable throughout. Troponins x 2 were negative while here. C-reactive protein was about 54 on admission and has come down to 17.6 by discharge. Brain atretic peptide x 2 was normal while here. Protein studies and indices on the complete metabolic panel were unremarkable. Lactic acids, lipase, procalcitonin, serum were all unremarkable. Free T4 was normal. Patient's free T3 is still pending. Urinalysis on admission showed some ketones secondary to the patient's dehydration and was otherwise unremarkable. UA taken three days later showed a trace amount of protein as well as notable blood which was secondary to the patient being starting her period. There was a trace amount of bacteria. There were no urinary symptoms and thus no antibiotics indicated. This can be followed as an outpatient. Initial respiratory PCR panel including influenza A and B were negative on admission. The patient's mycoplasma serologies are still pending. When the respiratory PCR was rechecked again later in the admission it was noted that the patient was positive for influenza A as well as coronavirus. PERTINENT MICROBIOLOGY WHILE HERE Urine strep pneumonia antigen was negative. Blood cultures x 2 were negative after three days but still officially pending. PERTINENT IMAGING WHILE HERE The patient had a chest x-ray, PA and lateral, on admission which was unremarkable. EKGs on admission both in the clinic and in the hospital showed some diffuse occasional T-wave inversions but were otherwise nonspecific other than some sinus tachycardia. The patient's EKG the day before discharge was completely normal. Chest CT with PE protocol done the day before admission showed no evidence of thromboembolic disease. There was some mild cholelithiasis which was asymptomatic. There was some degenerative disease of the spine but was otherwise unremarkable. There were no infiltrates. Echocardiogram done on 04/05/2017 showed a normal ejection fraction at 72%. There was mild left atrial dilatation as well as mild mitral regurgitation and mild tricuspid regurgitation but otherwise no significant vulvopathy. The patient's systolic pulmonary artery pressure was 27 and this was normal. PERTINENT VITAL SIGNS WHILE HERE The patient was in sinus tachycardia initially on admission which resolved with IV fluids. Respirations in the clinic on admission were in the 30s to 40s by my observation and were normal by discharge. The patient's blood pressures were unremarkable throughout. The patient was febrile with a fever of 103.7 in the clinic on the day of admission and on admission to the hospital her fever was 101.9. The patient was afebrile throughout the rest of her stay here. The patient's oxygen saturation initially did drop as low as 88% on room air. She did have 1 liter of oxygen initially on admission but was on room air throughout the most of the rest of her stay and saturating quite well. PHYSICAL EXAMINATION FINDINGS The patient did have some left lower lung crackles as well as moderate bibasilar end expiratory wheezes on admission. By discharge this had completely resolved. She was not moving air well initially on admission but was moving air normally by discharge. HISTORY OF PRESENT ILLNESS/HOSPITAL COURSE This is a pleasant 36-year-old female known to our clinic. She has been told she has a distant history of asthma. She usually follows with Dodie Pike as her usual primary care provider at [facility]. She was in her usual state of health until about five or six days previous to admission. At that time she noted a runny nose with clear rhinorrhea which developed into fevers, chills and generalized body aches as well as fatigue and malaise. She felt generally weak and developed a rather vigorous cough. She became increasingly short of air on exertion and eventually short of air at rest. On the day of admission in our clinic her oxygen saturations were in the mid-80s anytime she would exert herself and her respirations were generally in the 30s to 40s. She was moderately tachycardic and dehydrated with heart rates in the 120s. She was complaining of a great deal of respiratory distress and using some accessory muscles and thus she was admitted to [facility] for further workup and evaluation. In regards to the patient's asthma exacerbation and influenza/coronavirus upper respiratory tract infection, an extensive imaging and laboratory evaluation was undertaken as noted above. She was started on IV Levaquin as well as DuoNeb scheduled. She was also started on Tessalon Perles as needed and IV Solu- Medrol. The initial respiratory PCR was negative for influenza and anything else. Over the course of the next couple of days she did improve significantly. She was given significant amounts of IV fluids which quelled her tachycardia and dehydration. The day previous to discharge it was noted that she was still having some trouble breathing and had even worsened a bit. Her D-dimer was positive. At this time a workup for other causes of shortness of breath was obtained. CT chest with pulmonary embolism protocol was essentially normal. The patient was rechecked again for influenza and was noted to have the results as above. She was started on the Tamiflu as noted above as an outpatient. She was switched away from the Levaquin and put on azithromycin for three more days. Her EKGs showed no evidence of QT interval prolongation. The patient's vitals were normal by discharge. Overall, the patient had a great deal of improvement symptomatically on her physical exam but she was not at her baseline yet. It is our hope that she can progress further as an outpatient at this time. She will likely have some underlying asthma. We can manage this further as an outpatient. The patient was noted to have some musculoskeletal upper back pain when coughing. I will direct you to the notes from the hospitalization for evaluation of this. It clearly appeared to be musculoskeletal back pain. The patient was treated with Argyle as needed and given Colace as needed for any constipation this may cause. By discharge this was greatly improved. She had no neuropathic symptoms related to this and no bony spine tenderness. She had had no falls, trauma or injuries to explain this. The patient did have a mild transaminase elevation on admission. This was likely secondary to her acute illness. This had resolved a couple of days into the admission and has not become a problem since. The patient's phosphorus was a little low on admission. It was replaced and rechecked. It was normal on recheck. The patient did have a hemoglobin that dropped into the middle 11's while here. It was stable the rest of her stay. This was likely from the IV fluids she obtained and will be followed as an outpatient as noted above. The patient had a mild CK elevation on admission which was likely from her vigorous coughing. It was just barely out of the normal range. This does not appear otherwise clinically significant. The patient did have some mild hyperthyroidism which was subclinical on admission. TSH was 0.18. This was likely secondary to her acute illness. Free T4 was unremarkable and the free T3 is still pending. We will follow this as an outpatient. For the patient's clinical dehydration, this resolved with IV fluids. In regards to the patient's sinus tachycardia, this appeared to be from the dehydration and resolved with IV fluids. In regards to the patient's nausea and vomiting on admission, this was from the vigorous coughing and once this was controlled it resolved. The patient did have a small amount of blood in her urine. This was likely from the fact she had started her period while here. test was negative on admission. This can be followed as an outpatient. All other chronic medical conditions stable and no changes to plan of care at this time. For DVT prophylaxis the patient was on subcutaneous Lovenox while here. For GI prophylaxis the patient was on an oral diet while here. The patient was a FULL CODE while here. The patient is discharged to home in stable and good condition. Please see progress notes and orders in the EMR for further details on this hospital stay as they cannot possibly all be incorporated into one discharge summary. MTDD
== END 2017-04-07 18:20 | disposition home or self-care (01) | DRG 871 ==
LOC: MED 14:39
PROVIDERS: ADMIT Internal Medicine; ATTEND Internal Medicine